=== PATIENT | female | born 2000 | race Caucasian/White ===

== ENCOUNTER 2020-12-05 01:16 | Emergency (ER) | payer OTHER ==
[~2020-12-05] VITALS: Ht 165.1 cm; Wt 59.1 kg
[2020-12-05 01:24] VITALS: TEMP 98.4
[2020-12-05 01:49] LABS: BASO % 0.6 % (0.0-2.0); EOS # 0.3 (0.0-0.7); EOS % 5.2 % (0-4.0); GRAN # 2.3 (1.4-6.5); GRAN % 36.3 % (42.2-75.2); HEMATOCRIT 38.3 % (37.0-47.0); HEMOGLOBIN 12.9 g/dl (12.5-16.0); LYMPH # 3.1 (1.2-3.4); LYMPH % 49.8 % (20.0-51.0); MEAN CELL VOLUME 91 fl (80.0-100.0); MEAN CORPUSCULAR HEMOGLOBIN 31 pg (27.0-31.0); MEAN CORPUSCULAR HGB CONC 34 g/dl (33.0-37.0); MEAN PLATELET VOLUME 10.4 fl (7.4-10.4); MONO # 0.5 (0.1-0.6); MONO % 7.9 % (1.7-9.3); PLATELET COUNT 248 K/mm3 (130-400); RED BLOOD COUNT 4.23 M/mm3 (4.10-5.30); REDCELL DISTRIBUTION WIDTH-CV 11.9 % (11.5-14.5)
[2020-12-05 01:56] LABS: ALANINE AMINOTRANSFERASE 13 U/L (4-34); ALBUMIN 4.4 gm/dL (3.5-5.0); ALKALINE PHOSPHATASE 40 U/L (50-136); ANION GAP 9 mmol/L (7-16); AST,SGOT 24 U/L (15-37); BILIRUBIN,TOTAL < 0.1 mg/dL (0.0-1.0); BLOOD UREA NITROGEN 11 mg/dL (7-17); CALCIUM 9.3 mg/dL (8.4-10.2); CARBON DIOXIDE 28 mmol/L (22-30); CHLORIDE 103 mmol/L (98-107); CREATININE, serum 0.75 (0.52-1.25); GLUCOSE 100 mg/dL (74-106); LIPASE 98 U/L (23-300); POTASSIUM 3.8 mmol/L (3.4-5.0); SODIUM 140 mmol/L (137-145); TOTAL PROTEIN 7.4 gm/dL (6.4-8.2)
[2020-12-05 02:03] LABS: COLLECTION METHOD CLEAN CATCH
[2020-12-05 02:44] LABS: BUDDING YEAST Present /hpf; MUCOUS Present /lpf; PH 7 (5-8); SQUAMOUS EPITHELIAL None Seen /hpf; URINE APPEARANCE Cloudy; URINE BACTERIA Rare /hpf; URINE BILIRUBIN Negative (NEGATIVE); URINE BLOOD 1+ (NEGATIVE); URINE COLOR Yellow; URINE GLUCOSE Negative (NEGATIVE); URINE KETONE Negative (NEGATIVE); URINE LEUKOCYTE ESTERASE Negative (NEGATIVE); URINE NITRATE Negative (NEGATIVE); URINE PROTEIN(semi-quant) Negative (NEGATIVE); URINE RBC 0-2 /hpf
[2020-12-05 03:21] VITALS: BP 122/64; PULSE 95
== END 2020-12-05 03:21 | disposition home or self-care (01) ==
LOC: COL.ER 01:16
PROVIDERS: Emergency Medicine
DX: B37.3 Candidiasis of vulva and vagina (principal); Z32.02 Encounter for pregnancy test, result negative
CPT/HCPCS: J2270; J7030; Q9967